=== PATIENT | female | born 2000 | race American Indian/Alaskan Native ===

== ENCOUNTER 2021-06-14 08:24 | Outpatient (CLI) | payer OTHER ==
--- NOTE | 2021-06-14 09:27 | Ultrasound Report ---
ULTRASOUND BREAST BILATERAL COMPLETE, 06/14/2021 CLINICAL INFORMATION / INDICATION: UNSPECIFIED LUMP LEFT BREAST, LOWER OUTER QUADRANT N63.23. TECHNIQUE: Complete sonographic evaluation of all 4 quadrants and retroareolar region was performed. COMPARISON: None. FINDINGS: Right breast: There is a lobulated oval circumscribed hypoechoic mass in the right breast 12:00 posit ion located 10 cm from the nipple measuring up to 2.8 x 1.2 x 3.3 cm. The mass is parallel. No spring internship al vascularity is noted. Otherwise, complete ultrasound of the right breast is unremarkable. Left breast: Corresponding with the site of palpable concern in the left breast 3:00 position located 11 cm from the nipple, there is an oval circumscribed hypoechoic mass measuring up to 4.6 x 1.9 x 5. 1 cm. The mass is parallel. A focus of internal vascularity is demonstrated. Otherwise, complete ultr asound of the left breast is unremarkable. IMPRESSION: 1. Bilateral oval circumscribed hypoechoic masses are seen, one of which accounts for the area of pal pable concern in the left breast. 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 Follow up recommendation: Biopsy BI-RADS Category 4: Suspicious for Malignancy. A normal or "negative" report should not preclude biopsy or follow-up of a clinically suspicious find ing. Signer Name: Jeanne Horton MD Signed: 06/14/2021 9:23 AM Workstation Name: [id number]
== END 2021-06-14 08:25 | disposition home or self-care (01) ==
LOC: SPVWC 08:24
PROVIDERS: ATTEND Surgery
DX: N63.12 Unspecified lump in the right breast, upper inner quadrant (principal); N63.21 Unspecified lump in the left breast, upper outer quadrant; N63.23 Unspecified lump in the left breast, lower outer quadrant

== ENCOUNTER 2021-06-19 08:10 | Outpatient (CLI) | payer OTHER ==
--- NOTE | 2021-06-19 09:49 | Ultrasound Report ---
ULTRASOUND GUIDED RIGHT BREAST BIOPSY, 06/19/2021 CLINICAL INFORMATION / INDICATION: R92.2. Patient presents for bilateral ultrasound-guided biopsy. COMPARISON: Bilateral breast ultrasound 06/14/2021 PROCEDURE: Risks, benefits, and indications to the procedure were discussed with the patient in detail, includin g bleeding, infection, hematoma formation, and inadequate tissue sampling. The patient agreed to proc eed with both verbal and written consent. A timeout procedure was performed with two patient identifi ers. The breast was prepped and draped in the usual sterile fashion. Lidocaine 1% with and without epineph rine were used for local anesthesia. Under direct ultrasound guidance, multiple core samples were obt ained of the mass in the 12:00 position of the right breast. A biopsy marker was then placed. Biopsy device was removed and hemostasis achieved with manual pressure. A sterile dressing was applied to t he skin. The patient tolerated the procedure without difficulty. No complications were encountered. Postbiopsy instructions were discussed with the patient and given in writing. Specimens were sent to pathology. IMPRESSION: 1. Technically successful ultrasound guided right breast biopsy. 2. Refer to separately dictated left breast ultrasound-guided biopsy report. Biopsy results are pending and will be reported in an addendum. Signer Name: Jeanne Horton MD Signed: 06/19/2021 9:45 AM Workstation Name: [id number]
--- NOTE | 2021-06-19 09:50 | Ultrasound Report ---
ULTRASOUND GUIDED LEFT BREAST BIOPSY, 06/19/2021 CLINICAL INFORMATION / INDICATION: R92.2. Patient presents for bilateral ultrasound-guided biopsy. COMPARISON: Bilateral breast ultrasound 06/14/2021 PROCEDURE: Risks, benefits, and indications to the procedure were discussed with the patient in detail, includin g bleeding, infection, hematoma formation, and inadequate tissue sampling. The patient agreed to proc eed with both verbal and written consent. A timeout procedure was performed with two patient identifi ers. The breast was prepped and draped in the usual sterile fashion. Lidocaine 1% with and without epineph rine were used for local anesthesia. Under direct ultrasound guidance, multiple core samples were obt ained of the mass in the left breast 3:00 position located 11 cm from the nipple. A biopsy marker wa s then placed. Biopsy device was removed and hemostasis achieved with manual pressure. A sterile dres sing was applied to the skin. The patient tolerated the procedure without difficulty. No complications were encountered. Postbiopsy instructions were discussed with the patient and given in writing. Specimens were sent to pathology. IMPRESSION: 1. Technically successful ultrasound guided left breast biopsy. 2. Refer to separately dictated right breast ultrasound-guided biopsy report. Biopsy results are pending and will be reported in an addendum. Signer Name: Jeanne Horton MD Signed: 06/19/2021 9:46 AM Workstation Name: [id number]
== END 2021-06-19 08:11 | disposition home or self-care (01) ==
LOC: SPVWC 08:10
PROVIDERS: ATTEND Surgery
DX: R92.2 Inconclusive mammogram (principal); N63.23 Unspecified lump in the left breast, lower outer quadrant; D24.2 Benign neoplasm of left breast; D24.1 Benign neoplasm of right breast; Z79.899 Other long term (current) drug therapy
CPT/HCPCS: 88305